=== PATIENT | female | born 1985 | race Caucasian/White ===

== ENCOUNTER 2022-04-19 11:19 | Emergency (ER) | payer BC ==
[2022-04-19] MEDS ORDERED: Ondansetron 4 MG/2 ML SDV IVPUSH ONE (11:54)
[2022-04-19] MEDS ORDERED: Sodium Chloride 0.9% 10 ML Syringe FLUSH PRN (11:54)
[2022-04-19] MEDS ORDERED: Sodium Chloride 0.9% 1,000 ML IV SCH ×2 (12:00→14:30)
[2022-04-19] MEDS ORDERED: cefTRIAXone 1 GM in Sodium Chloride 0.9% 100 ML IV ONE (14:21)
== END 2022-04-19 16:06 | disposition home or self-care (01) ==
LOC: JD.ED 11:19
DX: N12 Tubulo-interstitial nephritis, not specified as acute or chronic (principal); Z91.048 Other nonmedicinal substance allergy status
CPT/HCPCS: 36415; 80053; 81001; 82977; 83690; 85025; 86140; 96361; 96365; 96375; 99284; J0696; J2405; J3490; J7030

== ENCOUNTER 2022-04-21 11:31 | Emergency (ER) | payer BC ==
[2022-04-21] MEDS ORDERED: Sodium Chloride 0.9% 1,000 ML IV STA (13:22)
[2022-04-21] MEDS ORDERED: Sodium Chloride 0.9% 10 ML Syringe FLUSH PRN (13:22)
[2022-04-21] MEDS ORDERED: Ibuprofen 400 MG Tab PO ONE (15:45)
[2022-04-21] MEDS ORDERED: Potassium Chloride 20 MEQ Tab.ER PO ONE (15:49)
== END 2022-04-21 16:28 | disposition home or self-care (01) ==
LOC: JD.ED 11:31
DX: N12 Tubulo-interstitial nephritis, not specified as acute or chronic (principal); Z91.048 Other nonmedicinal substance allergy status; Z79.899 Other long term (current) drug therapy
CPT/HCPCS: 36415; 80053; 83605; 85025; 86140; 96360; 96361; 99283-25; J3490; J7030

== ENCOUNTER 2023-10-11 10:15 | Inpatient (IN) | payer BC ==
[2023-10-11] MEDS ORDERED: Oxytocin/Lactated Ringers 30 UNIT/500 ML BAG IV SCH (10:45)
[2023-10-11] MEDS ORDERED: Sodium Chloride 0.9% 10 ML Syringe FLUSH PRN (10:45)
[2023-10-11] MEDS ORDERED: Lactated Ringers 1,000 ML IV SCH (10:45)
[2023-10-11] MEDS ORDERED: Bupivacaine 0.5% 30 ML SDV ONE (10:57)
[2023-10-11] MEDS: Metoclopramide 10 MG/2 ML SDV IVPUSH ONE (10:58)
[2023-10-11] MEDS: Citric Acid/Sodium Citrate Solution 30 ML Cup PO ONE (10:58)
[2023-10-11] MEDS ORDERED: Ketorolac 30 MG/ML SDV ONE (11:04)
[2023-10-11] MEDS ORDERED: ceFAZolin 2 GM Vial ONE (11:04)
[2023-10-11] MEDS ORDERED: Morphine PF 10 MG/10 ML SDV ONE (11:04)
[2023-10-11] MEDS ORDERED: Lactated Ringers 1,000 ML ONE (11:04)
[2023-10-11] MEDS ORDERED: Ondansetron 4 MG/2 ML SDV ONE (11:04)
[2023-10-11] MEDS ORDERED: ePHEDrine 50 MG/ML SDV ONE (11:18)
[2023-10-11] MEDS ORDERED: diphenhydrAMINE 50 MG/ML SDV IVPUSH PRN ×2 (12:22→14:13)
[2023-10-11] MEDS ORDERED: fentaNYL 100 MCG/2 ML SDV IVPUSH PRN (12:22)
[2023-10-11] MEDS ORDERED: Meperidine 50 MG/ML Vial IVPUSH PRN (12:22)
[2023-10-11] MEDS ORDERED: Ondansetron 4 MG/2 ML SDV IVPUSH PRN (12:22)
[2023-10-11] MEDS ORDERED: ePHEDrine 50 MG/ML SDV IVPUSH PRN (14:13)
[2023-10-11] MEDS ORDERED: Naloxone 0.4 MG/ML SDV IVPUSH PRN (14:13)
[2023-10-11] MEDS ORDERED: Magnesium Hydroxide 400 MG/5 ML Susp 30 ML Cup PO PRN (14:13)
[2023-10-11] MEDS: Ketorolac 30 MG/ML SDV IVPUSH SCH (14:43)
[2023-10-11] MEDS ORDERED: Ketorolac 30 MG/ML SDV IVPUSH SCH (17:00)
[2023-10-11] MEDS: Ondansetron 4 MG Tab.DIS PO PRN (17:58)
[2023-10-11] MEDS: Simethicone 80 MG Tab.Chew PO SCH (18:00)
[2023-10-11] MEDS: Azithromycin 500 MG in Sodium Chloride 0.9% 250 ML IV ONE (19:12)
[2023-10-11] MEDS: ceFAZolin 2 GM in Sodium Chloride 0.9% 50 ML IV ONE (19:13)
[2023-10-11] MEDS: Docusate Sodium 100 MG Cap PO SCH (20:46)
[2023-10-11] MEDS: Dextrose 5%-Lactated Ringers 1,000 ML IV SCH (20:51)
[2023-10-11] MEDS ORDERED: Sodium Chloride 0.9% 10 ML Syringe FLUSH SCH (21:00)
[2023-10-12 05:33] LABS: BASOPHILS PERCENT AUTO 0.1 % (0.0-1.0); EOSINOPHILS PERCENT AUTO 0.1 % (0.0-6.0); HEMATOCRIT 34.3 % (37.0-47.0); HEMOGLOBIN 11.5 gm/dl (12.0-16.0); IMMATURE GRAN ABSOLUTE AUTO 0.05 K/mm3 (0.00-0.05); IMMATURE GRAN PERCENT AUTO 0.4 % (0.0-0.4); LYMPHOCYTES ABSOLUTE AUTO 1.2 K/mm3 (1.0-4.8); LYMPHOCYTES PERCENT AUTO 8.7 % (24.0-44.0); MEAN CORPUSCULAR HEMOGLOBIN 30.4 pg (28.0-32.0); MEAN CORPUSCULAR HGB CONC 33.5 g/dl (32.0-36.0); MEAN CORPUSCULAR VOLUME 90.7 fl (83.0-99.0); MEAN PLATELET VOLUME 12.6 fl (9.4-12.3); MONOCYTES ABSOLUTE AUTO 0.8 K/mm3 (0.0-0.8); MONOCYTES PERCENT AUTO 5.9 % (0.0-8.0); NEUTROPHILS ABSOLUTE AUTO 11.7 K/mm3 (1.8-7.7); NEUTROPHILS PERCENT AUTO 84.8 % (41.0-71.0); PLATELET COUNT,PLT 131 K/mm3 (150-400); RED BLOOD CELL COUNT 3.78 M/mm3 (4.10-5.30); WHITE BLOOD CELL COUNT,WBC 13.76 K/mm3 (3.9-11.3)
[2023-10-12] MEDS: Prenatal Multivitamin with Calcium/Folic Acid/Iron Tab PO SCH (09:19)
[2023-10-12] MEDS: Acetaminophen/oxyCODONE 325-5 MG Tab PO PRN ×2 (09:37→20:47)
[2023-10-12] MEDS: Ibuprofen 600 MG Tab PO SCH (14:47)
== END 2023-10-13 14:09 | disposition home or self-care (01) | DRG 540 ==
LOC: JD.OBCHECK 10:15 → JD.OB 10:19 → JD.OBCHECK 11:32
PROVIDERS: ADMIT Obstetrics & Gynecology; ATTEND Obstetrics & Gynecology
PROC: 10D00Z1 Extraction of Products of Conception, Low, Open Approach (ICD-10-PCS; principal; 2023-10-11 11:00)
DX: O99.824 Streptococcus B carrier state complicating childbirth (principal); Z37.0 Single live birth; Z3A.38 38 weeks gestation of pregnancy; O34.211 Maternal care for low transverse scar from previous cesarean delivery
CPT/HCPCS: 36415; 59025; 85025; 86592; 86850; 86900; 86901; A9270-GY; J0665; J0690; J1885; J2274; J2405; J2765; J3490; J7120; J7121